=== PATIENT | female | born 1945 | race Caucasian/White ===

== ENCOUNTER → 2017-03-03 | Outpatient (CLI) | payer MEDICARE ==
[~2017-03-03] MED LIST: BISOPROLOL/HCTZ1 TA2 PO; PRAVASTATIN SOD20 MG PO
[2017-03-03 09:39] LABS: BASO % 0.5 % (0.0-1.0); EOS # 0.1 10*3/uL (0.0-0.4); EOS % 1.6 % (1.0-4.0); HEMOGLOBIN 13.4 g/dl (12.0-16.0); LYMPH # 1.6 10*3/uL (1.3-4.4); LYMPH % 25.8 % (27.0-41.0); MEAN CELL VOLUME 91.5 fl (81.0-99.0); MEAN CORPUSCULAR HGB 30.7 pg (27.0-31.0); MEAN CORPUSCULAR HGB CONC 33.5 g/dl (33.0-37.0); MEAN PLATELET VOLUME 8.7 fl (9.6-12.3); MONO # 0.5 10*3/uL (0.1-1.0); MONO % 8.1 % (3.0-9.0); NEUT % 63.8 % (47.0-73.0); PLATELET COUNT AUTOMATED 293 10*3/uL (130-400); RED BLOOD COUNT 4.37 10*6/uL (4.10-5.10); RED CELL DISTRI WIDTH 13.3 % (0-14.5); WHITE BLOOD COUNT 6.3 10*3/uL (4.8-10.8)
[2017-03-03 10:10] LABS: ALBUMIN 3.8 gm/dl (3.1-4.5); ALKALINE PHOSPHATASE 104 U/L (45-117); BILIRUBIN, DIRECT 0.1 mg/dL (0.0-0.2); BUN 15 mg/dl (7-24); CHLORIDE 98 mmol/L (98-107); CHOLESTEROL 203 mg/dL (<200); CREATININE 0.94 mg/dL (0.55-1.02); SGOT/AST 28 IU/L (3-35); SGPT/ALT 32 U/L (12-78); SODIUM 136 mmol/L (136-145); TOTAL PROTEIN 7.6 gm/dL (6.4-8.2); TRIGLYCERIDES 107 mg/dl (<150); VLDL CHOLESTEROL 21 mg/dL (6-40)
[2017-03-03 10:17] LABS: HDL CHOLESTEROL 118 mg/dl (40-60); LDL CHOLESTEROL 64 mg/dL (9-159)
== END | disposition home or self-care (01) ==
LOC: LAB 09:19
PROVIDERS: Internal Medicine
DX: I10 Essential (primary) hypertension (principal); E78.2 Mixed hyperlipidemia; D51.9 Vitamin B12 deficiency anemia, unspecified

== ENCOUNTER → 2017-03-07 | Outpatient (CLI) | payer MEDICARE | END | disposition home or self-care (01) | LOC: LAB 08:09 | DX: E03.9 Hypothyroidism, unspecified (principal) ==

== ENCOUNTER → 2017-10-23 | Outpatient (CLI) | payer MEDICARE ==
[2017-10-23 09:35] LABS: ALBUMIN 3.8 gm/dl (3.1-4.5); ALKALINE PHOSPHATASE 100 U/L (45-117); BUN 16 mg/dl (7-24); CHLORIDE 104 mmol/L (98-107); CHOLESTEROL 177 mg/dL (<200); CREATININE 0.93 mg/dL (0.55-1.02); HDL CHOLESTEROL 99 mg/dl (40-60); LDL CHOLESTEROL 67 mg/dL (9-159); PHOSPHOROUS 3.5 mg/dL (2.5-4.9); POTASSIUM 4.2 mmol/L (3.5-5.1); SGOT/AST 15 IU/L (3-35); SGPT/ALT 16 U/L (12-78); SODIUM 141 mmol/L (136-145); TOTAL PROTEIN 7.3 gm/dL (6.4-8.2); TRIGLYCERIDES 53 mg/dl (<150); VLDL CHOLESTEROL 11 mg/dL (6-40)
[2017-10-23 09:40] LABS: BILIRUBIN, DIRECT 0.1 mg/dL (0.0-0.2)
== END | disposition home or self-care (01) ==
LOC: LAB 08:30
PROVIDERS: Internal Medicine
DX: I10 Essential (primary) hypertension (principal); E78.2 Mixed hyperlipidemia; G62.9 Polyneuropathy, unspecified

== ENCOUNTER → 2017-10-26 | Outpatient (CLI) | payer MEDICARE | END | disposition home or self-care (01) | LOC: MAMMO 08:11 | DX: Z12.31 Encounter for screening mammogram for malignant neoplasm of breast (principal) ==

== ENCOUNTER 2018-11-03 11:57 | Inpatient (IN) | payer MEDICARE ==
[~2018-11-03] VITALS: Ht 162.5 cm; Wt 74.6 kg
[2018-11-03] VITALS (9 sets, daily range): BP systolic 113–172; BP diastolic 51–84
--- NOTE | ~2018-11-03 | O ---
[place], [place] OPERATIVE NOTE NAME: RYDER COTA UNIT #: [id number] ROOM: 410 DOCTOR: RADHIKA PIERRE DO BIRTHDATE: [birth year] DOS: 11/04/2018 PREOPERATIVE DIAGNOSIS: Left femoral neck fracture, displaced. POSTOPERATIVE DIAGNOSIS: Left femoral neck fracture, displaced. OPERATIVE PROCEDURE: Left femoral hemiarthroplasty. SURGEON: Radhika Pierre DO MANAGEMENT PROFESSIONALS: Sherrell Deras Gaydos. ANESTHESIA: Stephany, MINERAL INDUSTRY TEACHER; Spinal. INDICATIONS: The patient is a 73-year-old female with a history of fall in her home yesterday, suffering a left femoral neck fracture with displacement. The risks and benefits of the procedure were explained to the patient preoperatively. Preoperative labs and x-rays were obtained including preoperative medical optimization. DESCRIPTION OF PROCEDURE: The left hip was marked in the holding room. The patient was brought to the operative suite. A spinal anesthetic was performed by Anesthesia. The patient was placed in a lateral decubitus position with the left lower extremity superior and positioned with a Keeling device. All bony prominences were padded. Timeout was performed. Left lower extremity was prepped and draped in the usual orthopedic fashion. The posterior southern incision was marked with a marking pen. The skin was injected with Marcaine 0.5% with epinephrine. The posterior incision was made sharply with a scalpel. Subcutaneous tissue was spread down to the level of the gluteus enrrique. The gluteus enrrique was divided along its fibers after the fascia had been incised. The extremity was externally rotated and the piriformis was identified. This was tagged with a suture. The short external rotators were released from their insertion on the greater trochanter and retracted posteriorly over the sciatic nerve. The capsule was identified and divided. The guide was utilized to michael the calcar cut. This was made sharply with an oscillating saw. The femoral neck was removed and the femoral head. The entry point was lateralized using a box osteotome followed by straight awl and a lateral rasp. The small chili pepper broach was utilized followed by a size 8 and progressing to a size 11 with attention to the anteversion. The trial 1.5 head with a 45 mm outer diameter was utilized and found to be snug and difficult to reduce. The head was changed to a +1.5 head with a 44 mm outer diameter and the reduction was performed. The hip was taken through a range of motion with flexion past 90, internal and external rotation and extension. Shucking was performed and found to be appropriate. The length was measured against the opposite extremity and found to be appropriate. The trials were removed and the area was copiously irrigated with normal saline. The Corail cementless femoral stem was pressfit into place. This was a size 11. [place], [place] OPERATIVE NOTE NAME: RYDER COTA UNIT #: [id number] ROOM: [facility] DOCTOR: RADHIKA PIERRE DO BIRTHDATE: [birth year] The Articul/norah femoral head with a bipolar head were cold welded into place. The fit and fill was evaluated and found to be adequate. The hip was reduced with the femoral head into the acetabulum. The patient was again taken through the range of motion, flexion, extension, internal and external rotation and found to have good motion and stability. The area was copiously irrigated with normal saline and closed in a layered fashion using 0 Vicryl for the capsule followed by 0 Vicryl for the piriformis and short external rotators followed by 0 Vicryl for the gluteus fascia and 2-0 Vicryl for the adipose layer. The closure was completed with skin fernanda. The incision was again injected with Marcaine 0.5% with epinephrine. The dressing was applied with Xeroform, 4 x 4s, ABDs and Tegaderm. The abduction pillow was put into place. The patient was returned to a supine position. The patient was placed on the hospital bed and taken to the recovery room in satisfactory condition. SPONGE AND NEEDLE COUNT: Correct. ESTIMATED BLOOD LOSS: 300 mL. SPECIMENS: Femoral head and portion of the neck. DRAINS: None. PACKING: None. COMPLICATIONS: None. The patient received clindamycin 900 mg IV piggyback preoperatively. Local of Marcaine 0.5% with epinephrine was utilized. IMPLANTS: 1. DePuy Corail hip system, cementless femoral stem FLORES coated 12-14 135 angle standard, no collar size 11. 2. Self-centering bipolar head, 44 mm outer diameter. 3. Articul/norah femoral head 28 mm +1.5 mm tapered. [place], [place] OPERATIVE NOTE NAME: RYDER COTA UNIT #: [id number] ROOM: 410 DOCTOR: RADHIKA PIERRE DO BIRTHDATE: [birth year] RADHIKA PIERRE DO CM:OPRECORD:OPERATIVE NOTE [id number] 22 RADHIKA PIERRE DO 11/04/181920 interface
--- NOTE | ~2018-11-03 | EKG ---
[place], [place] ELECTROCARDIOGRAM REPORT NAME: RYDER COTA UNIT #: [id number] ROOM: 410 DOCTOR: MARYA DRAFT REPORT BIRTHDATE: [birth year] [facility] Test Date: 2018-11-03 Test Time: 13:13:49 Pat Name: RYDER COTA Department: Room: 410 Gender: F Otologist: : 1945 Requested By: JAJA WEN Order Number: [id number] Reading MD: Jojo Cota Measurements Intervals [place] Rate: 78 P: 58 NC: 152 QRS: 55 QRSD: 105 T: 63 QT: 410 QTc: 468 Interpretive Statements Sinus rhythm Electronically Signed On 11-04-2018 9:49:27 PDT by Jojo Cota CM:EKGRPT:ELECTROCARDIOGRAM REPORT [id number] JAJA MALHOTRA DRAFT REPORT JAJA WEN M.D.
[2018-11-03 13:07] LABS: BASO % 0.2 % (0.0-1.0); EOS % 0.2 % (1.0-4.0); LYMPH # 0.9 10*3/uL (1.3-4.4); MEAN CELL VOLUME 91.3 fl (81.0-99.0); MEAN CORPUSCULAR HGB 30.4 pg (27.0-31.0); MEAN CORPUSCULAR HGB CONC 33.3 g/dl (33.0-37.0); MEAN PLATELET VOLUME 9.1 fl (9.6-12.3); MONO # 0.6 10*3/uL (0.1-1.0); MONO % 4.8 % (3.0-9.0); NEUT # 11.2 10*3/uL (2.3-7.9); NEUT % 87.5 % (47.0-73.0); PLATELET COUNT AUTOMATED 226 10*3/uL (130-400); RED BLOOD COUNT 4.27 10*6/uL (4.10-5.10); RED CELL DISTRI WIDTH 13.6 % (0-14.5); WHITE BLOOD COUNT 12.8 10*3/uL (4.8-10.8)
[2018-11-03 13:17] LABS: INTERNATIONAL NORM RATIO 0.9 (2.0-3.5)
[2018-11-03 13:25] LABS: ALBUMIN 3.9 gm/dl (3.1-4.5); ALKALINE PHOSPHATASE 93 U/L (45-117); BUN 14 mg/dl (7-24); CHLORIDE 101 mmol/L (98-107); CREATININE 0.93 mg/dL (0.55-1.02); SGOT/AST 20 IU/L (3-35); SGPT/ALT 17 U/L (12-78); SODIUM 137 mmol/L (136-145); TOTAL PROTEIN 7.3 gm/dL (6.4-8.2)
--- NOTE | 2018-11-03 16:15 | NUR ---
Time: 1614 A 73 year old FEMALE admitted to [facility] under services of ANDRZEJ SWAIN DO. ADMISSION COMPLETED IN ED. Chief complaint: LEFT FX/PAIN. RANDI QUEZADA
--- NOTE | 2018-11-03 16:34 | NUR ---
PT HAS REMAINED AWAKE AND ALERT. LEFT HIP PAIN HAS IMPROVED AT THIS TIME AFTER DEMEROL. PT IS COMFORTABLE. SHE WILL BE ADMITTED HERE,DR JOHNSON HAS BEEN CONSULTED RE;LEFT HIP FX. A DINNER TRAY HAS BEEN ORDERED FOR PT. IS AT BEDSIDE. LAKSHMI ZUNIGA
--- NOTE | 2018-11-03 17:16 | NUR ---
PATIENT MEDICATED WITH IV DILAUDID FOR 10/10 PAIN TO LEFT HIP. WILL MONITOR
[2018-11-03] MEDS ORDERED: VITAMIN B1250 MCG PO (17:36)
[2018-11-03] MEDS ORDERED: ASPIRIN CHEWABL81 MG PO (17:36)
[2018-11-03] MEDS ORDERED: MIRALAX17 GM PO (17:37)
[2018-11-03] MEDS ORDERED: COLACE100 MG PO (17:37)
--- NOTE | 2018-11-03 17:45 | NUR ---
INPT DOCTOR MADE AWARE THAT HOME MEDICATIONS ARE VERIFIED AND UPDATED. STATED OK.
--- NOTE | 2018-11-03 18:20 | NUR ---
16F FOLET CATH INSERTED, POLICY AND PROCEDURE FOLLOWED. 200CC CLEAR/STRAW URINE PRODUCE ONCE INSERTED. 10CC SALINE INSERTED TO [place]. PATIENT TOLERATED WELL.
--- NOTE | 2018-11-03 19:17 | NUR ---
CIRO RECEIVED FROM NICHELLE, PREVIOUS RN AT THIS TIME. PT IS RESTING COMFORTABLY IN BED WITHOUT S/S OF DISTRESS. IS AT BEDSIDE.
--- NOTE | 2018-11-03 20:07 | NUR ---
DR. JOHNSON IS IN SEEING PATIENT AT THIS TIME.
--- NOTE | 2018-11-03 20:59 | NUR ---
PT REPORTS SHE IS COMFORTABLE IN BED. LIGHTS DIMMED AND DOOR CLOSED. PT HAS CALL GUILLERMO WITHIN REACH.
--- NOTE | 2018-11-03 22:27 | NUR ---
PT MEDICATED FOR PAIN REQUESTED PER EMAR. CONT PULSE OX IN PLACE. WILL RE-ASSESS PAIN.
--- NOTE | 2018-11-03 23:47 | NUR ---
PT IS STABLE AND READY FOR TRANSPORTATION TO IN PATIENT ROOM
[2018-11-04] VITALS (13 sets, daily range): BP systolic 105–161; BP diastolic 46–73
--- NOTE | 2018-11-04 00:14 | NUR ---
PT WAS TRANSPORTED TO INPATIENT ROOM #410 IN THE INPATIENT BED.
--- NOTE | 2018-11-04 00:15 | NUR ---
A 73, admitted to , under the services of ANDRZEJ Swain DO with a diagnosis of CLOSED LEFT FEMORAL FRACTURE. Chief complaint is FALL. Patient arrived via bed from ER. Monitor applied. Initial assessment completed. Vital signs taken and recorded. ANDRZEJ SWAIN DO notified of admission to the unit. Orders received. See assessment for past medical history, medications and allergies. Patient and/or family oriented to unit. [facility] visitation policy reviewed. Clothing/patient valuable form completed. ABIMAEL BARNETT
--- NOTE | 2018-11-04 02:28 | NUR ---
PT DENIES NEEDING PAIN MEDICATION AT THIS TIME AND STATES THAT SHE IS COMFORTABLE. WILL CONTINUE TO MONITOR.
--- NOTE | 2018-11-04 03:40 | NUR ---
PT GIVEN DILAUDID AT THIS TIME FOR LEFT HIP PAIN. NO OTHER COMPLAINTS VOICED. PT PLEASANT COOPERATIVE, SPEECH CLEAR. WILL MONITOR FOR EFFECTIVENESS. ALL SAFETY MEASURES IN PLACE. CALL LIGHT IN REACH, PT ENCOURAGED TO USE CALL LIGHT FOR ANY WANTS/NEEDS.
[2018-11-04 07:19] LABS: BASO % 0.1 % (0.0-1.0); EOS % 0.3 % (1.0-4.0); HEMATOCRIT 39.6 % (37.0-47.0); HEMOGLOBIN 13.1 g/dl (12.0-16.0); LYMPH # 1.2 10*3/uL (1.3-4.4); LYMPH % 13.3 % (27.0-41.0); MEAN CELL VOLUME 92.7 fl (81.0-99.0); MEAN CORPUSCULAR HGB 30.7 pg (27.0-31.0); MEAN CORPUSCULAR HGB CONC 33.1 g/dl (33.0-37.0); MEAN PLATELET VOLUME 9.5 fl (9.6-12.3); MONO # 0.7 10*3/uL (0.1-1.0); MONO % 7.7 % (3.0-9.0); NEUT # 7.1 10*3/uL (2.3-7.9); NEUT % 78.4 % (47.0-73.0); PLATELET COUNT AUTOMATED 231 10*3/uL (130-400); RED BLOOD COUNT 4.27 10*6/uL (4.10-5.10); RED CELL DISTRI WIDTH 13.7 % (0-14.5); WHITE BLOOD COUNT 9.1 10*3/uL (4.8-10.8)
--- NOTE | 2018-11-04 07:36 | NUR ---
C/O PAIN TO LEFT HIP OF 12/01. IV DILAUDID GIVEN AT THIS TIME. WILL CONT TO MONITOR. CALL LIGHT IN REACH.
[2018-11-04 07:48] LABS: BUN 12 mg/dl (7-24); CHLORIDE 101 mmol/L (98-107); CHOLESTEROL 188 mg/dL (<200); CREATININE 0.93 mg/dL (0.55-1.02); PHOSPHOROUS 3.9 mg/dL (2.5-4.9); POTASSIUM 3.7 mmol/L (3.5-5.1); SODIUM 137 mmol/L (136-145)
[2018-11-04 07:59] LABS: FREE T4 1.02 ng/dl (0.76-1.46); HDL CHOLESTEROL 117 mg/dl (40-60); LDL CHOLESTEROL 59 mg/dL (9-159); TRIGLYCERIDES 59 mg/dl (<150); VLDL CHOLESTEROL 12 mg/dL (6-40)
--- NOTE | 2018-11-04 08:36 | NUR ---
IV DILAUDID EFF PER PT. WILL CONT TO MONITOR.
--- NOTE | 2018-11-04 12:05 | NUR ---
C/O PAIN TO LEFT LEG OF 8/10. DILAUDID GIVEN AT THIS TIME. WILL CONT TO MONITOR. CALL LIGHT IN REACH.
--- NOTE | 2018-11-04 12:22 | NUR ---
PHYSICAL THERAPY ATTEMPTED PT EVAL TODAY HOWEVER PATIENT WAS AWAITING SURGERY FOR REPAIR OF FX TDOAY WITH DR JOHNSON. WILL AWAIT ORDERS POST OP. THANK YOU FOR REFERRAL SENTHIL W[facility]DR[facility] PT
--- NOTE | 2018-11-04 13:05 | NUR ---
PAIN MED EFF.
--- NOTE | 2018-11-04 13:20 | NUR ---
PT TAKEN TO SURGERY
--- NOTE | 2018-11-04 16:55 | NUR ---
PT REMAINS IN SURGERY.
--- NOTE | 2018-11-04 17:35 | NUR ---
PT ARRIVED ONTO FLOOR. VITALS STABLE. NO COMPLAINTS OF PAIN AT THIS TIME.
--- NOTE | 2018-11-04 19:25 | NUR ---
SPOKE WITH SURGERY. PTS VITALS ARE STABLE. NO COMPLAINTS OF PAIN. WILL BE BRINGING PT UP TO 4E SOON.
--- NOTE | 2018-11-04 20:19 | NUR ---
24 HOUR CHART CHECK COMPLETE.
--- NOTE | 2018-11-04 20:45 | NUR ---
PRN DILUADID ADMINISTERED PRESCRIBED FOR PT C/O DISCOMFORT. WILL CONTINUE TO MONITOR THE PT AND REASSESS. NO OTHER COMPLAINTS AT THIS TIME. CALL LIGHT IN REACH.
--- NOTE | 2018-11-04 21:21 | NUR ---
PT STATES SHE IS "FEELING VERY GOOD" AT THIS TIME. NITA CONTINUE TO MONITOR THE PT.
[2018-11-05] VITALS: BP 122/36
--- NOTE | 2018-11-05 00:15 | NUR ---
PRN DILAUDID ADMINISTERED FOR HIP DISCOMFORT. WILL CONTINUE TO MONITOR THE PT AND REASSESS. NO OTHER COMPLAINTS AT THIS TIME. CALL LIGHT IN REACH.
--- NOTE | 2018-11-05 00:48 | NUR ---
SPOKE TO DR ALMONTE REAGARDING CLARIFICATION FOR AN ORDER OF D5 IN 0.45 NS THAT WAS ORDERED BY DR. JOHNSON. NO RATE WAS GIVEN IN THE ORDER. DR ALMONTE SAID TO RUN IT AT 80 ML/HR AT THIS TIME.
--- NOTE | 2018-11-05 01:10 | NUR ---
PT STATES THAT "THE PAIN IS EASING UP". WILL CONTINUE TO MONITOR. NO COMPLAINTS AT THIS TIME.
--- NOTE | 2018-11-05 03:20 | NUR ---
PRN DILAUDID ADMINISTERED PRESCRIBED FOR 9/10 HIP PAIN. WILL CONTINUE TO MONITOR THE PT AND REASSESS. NO OTHER COMPLAINTS AT THIS TIME. CALL LIGHT IS IN REACH.
--- NOTE | 2018-11-05 03:53 | NUR ---
PT ASLEEP. NO SIGNS OF DISCOMFORT OR DISTRESS NOTED AT THIS TIME. CALL LIGHT IN REACH.
[2018-11-05 04:00] VITALS: BP 121/51
--- NOTE | 2018-11-05 06:22 | NUR ---
PRN DILAUDID ADMINISTERED PRESCRIBED FOR LT HIP PAIN. WILL CONTINUE TO MONITOR THE PT AND REASSESS. NO OTHER COMPLAINTS AT THIS TIME. CALL LIGHT IN REACH.
--- NOTE | 2018-11-05 07:00 | NUR ---
PT RESTING IN BED WITH NO SIGNS OF DISCOMFORT OR DISTRESS NOTED. WILL CONTINUE TO MONITOR.
[2018-11-05 07:35] LABS: BASO % 0.2 % (0.0-1.0); EOS % 0.1 % (1.0-4.0); LYMPH # 0.7 10*3/uL (1.3-4.4); LYMPH % 6.7 % (27.0-41.0); MEAN CORPUSCULAR HGB 31.3 pg (27.0-31.0); MEAN CORPUSCULAR HGB CONC 32.4 g/dl (33.0-37.0); MEAN PLATELET VOLUME 9.8 fl (9.6-12.3); MONO # 0.9 10*3/uL (0.1-1.0); MONO % 8.7 % (3.0-9.0); NEUT # 8.6 10*3/uL (2.3-7.9); PLATELET COUNT AUTOMATED 183 10*3/uL (130-400); RED BLOOD COUNT 3.26 10*6/uL (4.10-5.10); RED CELL DISTRI WIDTH 13.9 % (0-14.5); WHITE BLOOD COUNT 10.2 10*3/uL (4.8-10.8)
[2018-11-05 07:36] LABS: HEMATOCRIT 31.5 % (37.0-47.0); HEMOGLOBIN 10.2 g/dl (12.0-16.0); MEAN CELL VOLUME 96.6 fl (81.0-99.0)
[2018-11-05 07:37] LABS: BUN 12 mg/dl (7-24); CHLORIDE 105 mmol/L (98-107); POTASSIUM 3.8 mmol/L (3.5-5.1); SODIUM 139 mmol/L (136-145)
[2018-11-05 07:38] LABS: CREATININE 0.77 mg/dL (0.55-1.02)
[2018-11-05 08:00] VITALS: BP 136/54
--- NOTE | 2018-11-05 08:35 | NUR ---
RYDER COTA [id number] Please refer to the physician's history and physical for past medical history, comorbid conditions, and allergies. Diagnosis: CLOSED LEFT FEMORAL FRACTURE Kody Score: 14,MODERATE RISK WOUND DESCRIPTIONS: SKIN INTACT TO PATIENT'S LEFT ELBOW. ECCHYMOTIC AREA NOTED. PATIENT STATES SHE FELL AT HOME THIS PAST MONDAY. PATIENT DENIED PAIN AT TIME OF ASSESSMENT. Surface the patient is resting on: Position Pro SKIN PREVENTION RECOMMENDATION: 1. Pressure redistribution support surface as appropriate 2. Elevate heels 3. Remove boots/TEDS every shift and reapply 4. Head of bed 30 degrees as tolerated 5. Assess nutrition and hydration 6. Manage moisture 7. Avoid the use of containment devices while in bed 8. Use absorptive products on surfaces limit layers of linens on bed 9. Turn and reposition every 1-2 hours in bed and every 1 hour in chair as tolerated 10. Weight shifts every 15 minutes while up in chair 11. Offloading with pillows or device to keep heels elevated off bed 12. Monitor skin at least every shift 13. Inspect under medical devices twice a day
--- NOTE | 2018-11-05 09:00 | NUR ---
Garment Manufacturing Supervisor in to talk to patient. Patient states lives at home with . There are few steps in the home. Physician: ash [facility] Patient's level of ADLs: INDEPENDENT Patient has working utilities: all working DME: none Follow-up physician's appointment after d/c: will be made by hospitalist nurse director upon discharge Does patient want to access PORTAL?: no Discharge plan discussed with patient, patient lives at home with , she states she was independent in adls and ambualtion, drove, until her fall, discussed with her a short term alf for rehab prior to going home, patient stated she wanted to see what physical therapy and occupational therapy recommend and will then make her decision, case mangaement/account planner will follow. RYDER HAILE
--- NOTE | 2018-11-05 09:26 | NUR ---
DILAUDID GIVEN FOR C/O LT HIP PAIN. WILL MONITOR.
--- NOTE | 2018-11-05 10:30 | NUR ---
DILAUDID EFFECTIVE PER PT.
--- NOTE | 2018-11-05 11:09 | NUR ---
Occupational therapy eval complete on 4 with full eval to follow. Precautions include fall risk, bed alarm, IV UE, WBAT LLE, left total hip precautions, and loyd. High complexity level 39518 via chart review, testing, and eval. Recommend OT per POC and SNF to allow safe return home at prior level of independence. Thank you for this referral. Primo Ferrara OTR/l
--- NOTE | 2018-11-05 11:59 | NUR ---
PHYSICAL THERAPY PT evaluation complete at this time. Moderate complexity evaluation: 57019. Recommend SNF at discharge for improved safety and strength prior to return home with . Please see PT evaluation for complete details. Thank you. Sandy Cabrera, PT,DPT
[2018-11-05 12:00] VITALS: BP 110/50
--- NOTE | 2018-11-05 12:26 | NUR ---
DILAUDID GIVEN FOR C/O LT HIP PAIN. WILL MONITOR.
--- NOTE | 2018-11-05 13:05 | NUR ---
PHYSICAL THERAPY Patient seen this pm 1:1 for therapy visit and was supine in bed following lunch upon therapist arrival. Patient was very pleasant and reports no c/o's pain since receiving pain med within past hour. Patient educated on safe transfers, including standard hip precautions and voiced 100% understanding as she replied correctly naming all precautions. Patient transfers supine to sit EOB with use of overhead trapeze bar, Mod A, then performed several sit to stand transfers with bed elevated slightly, Mod A x 2, with use of wh walker standing support. Patient needed v/c to improve upright posture and instructed on safe step seqence. Patient completed SPT to bedside chair including 2-3 steps, WBAT on L LE. Patient remained in bedside chair with tray table, call light, and telephone as lunch arrived. Will continue per POC as tolerated to improve safe, functional transfers / mobility. Total treatment time 15 minutes. Sean Escalona, WEDDING FLORIST
--- NOTE | 2018-11-05 13:30 | NUR ---
DILAUDID EFFECTIVE PER PT.
--- NOTE | 2018-11-05 13:30 | NUR ---
OT NOTE Pt was seen this P.M. 1:1 for 30 minute OT session. Upon arrival pt was supine in bed. Pt identified by name and and had no complaints of pain at this time. Pt presented to therapy with continuous 3L-O2 via NC which she remained on throughout entire session. While supine in bed pt was educated on hip precuations and provided a handout for a visual. Pt was able to verbalize hip precautions with 100% understanding. Pt transferred supine to sit EOB with modA and use of overhead trapeze bar. Upon inital rise to the EOB pt had complaints of feeling dizzy, pt was educated on visual fixation and after a few seconds pt stated it was cleared. While sitting EOB pt was educated and demonstrated on use of sock aid for donning B socks. Pt then completed with Jyotsna for first sock due to sequencing and SBA for second sock. Throughout pt had complaints of feeling dizzy and nauseated resulting in pt completing sit to stand transfer from bed level with modA X 2 and use of w/w for UE support. Stand pivot completed from EOB to recliner with Jyotsna and verbal prompts for walker safety. Pt transferred into chair with Jyotsna. There she was left with call light in hand, tray table in place, and phone in reach. Pt's nurse Melina notified of feeling nauseated and dizzy. Continue with rec D/C plan to SNF. MEGAN Figueroa/Coty
--- NOTE | 2018-11-05 14:09 | NUR ---
In to see patient to discuss discharge planning and placement. Patient agreeable to snf placement and provided her choices. 1. [facility] 2. [facility] or 3. [facility]. [facility] are both full so patient asked for a referral to [facility]. Contacted facility and faxed referral. Will require a precert.
[2018-11-05 16:00] VITALS: BP 112/50
--- NOTE | 2018-11-05 16:33 | NUR ---
DILAUDID GIVEN FOR C/O LT HIP PAIN. WILL MONITOR.
--- NOTE | 2018-11-05 19:37 | NUR ---
Shift chart check completed.24 HR chart check completed.
[2018-11-05 20:00] VITALS: BP 106/39
--- NOTE | 2018-11-05 21:04 | NUR ---
PT WAS MEDICATED AT 1999 WITH IV DILAUDID FOR LEFT HIP PAIN "4 OR 5".10. HER DRESSING IS INTACT. WHEN THE AID DID VITAL SIGNS HER PULSE OX WAS 85% ON ROOM AIR. PT DENIED ANY SHORTNESS OF BREATH. ENCOURAGED HER TO USE INCENTIVE SPIROMETRY. HER ABDUCTOR PILLOW IS IN PLACE. HEEL RAISERS ON. JEWELL'S ON. SCD'S APPLIED. IV CONVERTED TO HEP LOCK. WITHIN MINUTES OF NASAL O2 OF 2L/MIN HER PULSE OX ADAM TO UPPER 90'S. SHE IS NOW RESTING EASILY WITH HER EYES CLOSED, APPARENT RELIEF OF PAIN. BED IS IN LOW POSITION. SHE HAS HER CALL LIGHT IN REACH. SEE ALL APPROPRIATE INTERVENTIONS.
[2018-11-06] VITALS: BP 113/49
[2018-11-06 06:53] LABS: BASO % 0.1 % (0.0-1.0); HEMATOCRIT 26.5 % (37.0-47.0); HEMOGLOBIN 8.8 g/dl (12.0-16.0); LYMPH # 0.8 10*3/uL (1.3-4.4); LYMPH % 8.3 % (27.0-41.0); MEAN CORPUSCULAR HGB 30.8 pg (27.0-31.0); MEAN CORPUSCULAR HGB CONC 33.2 g/dl (33.0-37.0); MEAN PLATELET VOLUME 9.8 fl (9.6-12.3); MONO # 1.1 10*3/uL (0.1-1.0); MONO % 10.9 % (3.0-9.0); NEUT # 7.8 10*3/uL (2.3-7.9); NEUT % 80.4 % (47.0-73.0); PLATELET COUNT AUTOMATED 138 10*3/uL (130-400); RED BLOOD COUNT 2.86 10*6/uL (4.10-5.10); RED CELL DISTRI WIDTH 13.7 % (0-14.5); WHITE BLOOD COUNT 9.7 10*3/uL (4.8-10.8)
[2018-11-06 06:54] LABS: MEAN CELL VOLUME 92.7 fl (81.0-99.0)
[2018-11-06 07:06] LABS: BUN 17 mg/dl (7-24); CHLORIDE 98 mmol/L (98-107); CREATININE 0.97 mg/dL (0.55-1.02); POTASSIUM 3.8 mmol/L (3.5-5.1); SODIUM 133 mmol/L (136-145)
[2018-11-06 08:00] VITALS: BP 143/61
--- NOTE | 2018-11-06 09:00 | NUR ---
case management visits with patient, patient has been referred to [facility] with insurance precert initiated, no other needs at this time
--- NOTE | 2018-11-06 09:38 | NUR ---
DILAUDID GIVEN FOR C/O LT HIP PAIN. RATES 7/10 ON PAIN SCALE. WILL MONITOR.
--- NOTE | 2018-11-06 09:40 | NUR ---
OT NOTE Pt was seen this A.M. 1:1 for 24 minute OT session. Upon arrival pt was supine in bed. Pt identified by name and and had no complaints of pain at rest. Throughout activity pt reported that her pain elevated to a 7/10. Pt transferred supine to sit EOB with maxA X 2 and use of overhead trapeze bar. Upon inital rise pt had reports of becoming dizzy. Re educated pt on visual fixation technique and pt had good carry over with reports of dizziness being cleared after aprox 12 seconds. Pt then completed sit to stand transfer from bed level with modA X 1 and use of w/w for UE support. Pt completed functional mobility to the bedside commode with Jyotsna and use of w/w. Pt presented with good carry over of hip precautions and walker safety. Pt transferred on/off bedside commode with modA x 1. Functional mobility then completed back to the recliner with Jyotsna X 1 and use of w/w. Pt was left sitting upright in the recliner with call light in hand, tray table in place, and under nurse supervision. Continue with rec D/C plan to SNF. MEGAN Figueroa/Coty
--- NOTE | 2018-11-06 10:44 | NUR ---
DILAUDID EFFECTIVE PER PT.
--- NOTE | 2018-11-06 10:52 | NUR ---
PHYSICAL THERAPY Patient gives informed consent for treatment. Patient had report of L HIP PAIN of 6/10. Patient was supine in bed with head of bed elevated and bed alarm activated. Patient transferred supine to sitting at EOB with MAX A X 2. Patient required MAX A X 2 with MAX VERBAL CUES for moving L LE out to EOB AND USING OVERAHEAD TRAPEZE. Patient is on 3 liters of spO2 via nasal canula. Patient performed sit to stand from EOB with MOD A X 1. Patient ambulated 20' x 1 with Standard Walker and CGA X 1 with rolling chair to hallway. Patient required VERBAL CUES for upright posture, pushing down on walker with hands, and advancing LEs. Patient is on 3 liters of spO2 via nasal canula. Patient transferred to bedside chair with MIN A x 2 WITH VERBAL CUES FOR PUTTING HANDS BACK ON ARMRESTS OF CHAIR. Patient Stand pivot transfer with verbal cues for only pivoting on R LE and pushing down on Standard Walker with bilateral Hands. Patient was left in sitting position with call light within reach and EFRAIN LOGAN said that she did NOT need a chair alarm. EFRAIN MENDEZ said she did not need the abduction pillow while sitting. Patient was 1:1 with this MEDICAL DIRECTOR/HEAD TEAM PHYSICIAN for 23 minutes total. MORALES PURI MEDICAL DIRECTOR/HEAD TEAM PHYSICIAN
[2018-11-06 12:00] VITALS: BP 107/47
--- NOTE | 2018-11-06 13:48 | NUR ---
[facility] has accepted this patient and has received auth. Patient is ok to go today if medically stable for discharge.
--- NOTE | 2018-11-06 14:45 | NUR ---
OT NOTE Pt was seen this P.M. for second OT session consisting of 27 minutes. Upon arrival pt was supine in bed. Pt identified by name and and had complaints of 5/10 L hip pain. Pt transferred supine to sit EOB with modA X2 and use of overhead trapeze bar. Sit to stand completed from bed level with Jyotsna and use of w/w for UE support. Functional mobility completed to the bedside commode with CGA and use of w/w with good carry over of hip precautions and walker safety. Pt transferred on to bedside commode with Jyotsna and verbal prompts to slide her LLE out when sitting. Clothing management completed with modA due to becoming unsteady when standing without UE support. Toilet hygiene completed with SBA while seated. Sit to stand completed from bedside commode with Jyotsna and use of w/w for UE support. Functional mobility completed back to the recliner where she sat for seated rest break due to fatigue and pain. While seated pt was educated on corn cutter and long handled sponge for increased I in lower body ADL's. Pt doffed and donned B socks using corn cutter and sock aid with SBA. Pt then simulated LB bathing with use of long handled sponge and SBA. Pt then transferred back into bed sit to supine with modA for assist with LLE. There she was left with call light in hand, trya table in place, and bed alarm on for safety. Continue with rec D/C plan to SNF. MEGAN Figueroa/Coty
--- NOTE | 2018-11-06 14:46 | NUR ---
PHYSICAL THERAPY Pt seen with bar. pt in bed sit-supine modax2. Pt sit-std minax2 with education for hand placement. pt ambulated 20 feet x 2 minax1. Pt on/off bedside commode minax1 . pt educated in sliding sore leg out. pt in out chair at bedside modax1-2. pt educated on sitting down easily. Pt was seen for 24 minutes. Silke [id number]
[2018-11-06] MEDS ORDERED: ENOXAPARIN40 MG/0.2 SC (15:55)
[2018-11-06] MEDS ORDERED: Percocet 325 MG1 TAB PO (15:55)
[2018-11-06] MEDS ORDERED: VITAMIN D5000 UNI1 PO (15:55)
[2018-11-06] MEDS ORDERED: ASPIR-TRIN325 MG PO (15:55)
[2018-11-06 16:00] VITALS: BP 107/57
--- NOTE | 2018-11-06 18:26 | NUR ---
PERCOCET GIVEN FOR C/O LT HIP PAIN. WILL MONITOR.
--- NOTE | 2018-11-06 18:38 | NUR ---
MSDIS Discharge instructions reviewed with patient/family. Patient receptive and verbalizes understanding. Follow-up care arranged. Written instructions given to patient/family. ANDREA LOGAN
--- NOTE | 2018-11-07 07:49 | NUR ---
PHYSICAL THERAPY CO-SIGN I approve of the Physical Therapy notes written above. RYAN NGO
--- NOTE | 2018-11-07 08:15 | NUR ---
OCCUPATIONAL THERAPY CO-SIGN I approve of the Occupational Therapy notes written above. RADHA ZAIDI OTR/Coty
== END 2018-11-06 18:38 | disposition other institution (70) | DRG 470 ==
LOC: ED 11:57 → 4E 15:47 → EDHOLD 15:47 → 4E 22:44
PROVIDERS: Emergency Medicine; Internal Medicine; Student in an Organized Health Care Education/Training Program; ADMIT Internal Medicine
PROC: 0SRS01A Replacement of Left Hip Joint, Femoral Surface with Metal Synthetic Substitute, Uncemented, Open Approach (ICD-10-PCS; principal; 2018-11-04)
DX: S72.002A Fracture of unspecified part of neck of left femur, initial encounter for closed fracture (principal); D72.829 Elevated white blood cell count, unspecified; D72.810 Lymphocytopenia; R73.9 Hyperglycemia, unspecified; I10 Essential (primary) hypertension; E78.5 Hyperlipidemia, unspecified; W01.0XXA Fall on same level from slipping, tripping and stumbling without subsequent striking against object, initial encounter; Y93.89 Activity, other specified; Y92.098 Other place in other non-institutional residence as the place of occurrence of the external cause; Y99.8 Other external cause status; Z88.0 Allergy status to penicillin; Z82.49 Family history of ischemic heart disease and other diseases of the circulatory system; Z83.79 Family history of other diseases of the digestive system; Z82.3 Family history of stroke; Z83.1 Family history of other infectious and parasitic diseases; Z79.82 Long term (current) use of aspirin; Z79.899 Other long term (current) drug therapy

== ENCOUNTER → 2018-11-20 | Outpatient (CLI) | payer MEDICARE ==
[~2018-11-20] MED LIST changes: +ASPIR-TRIN325 MG PO; +ASPIRIN CHEWABL81 MG PO; +COLACE100 MG PO; +ENOXAPARIN40 MG/0.2 SC; +MIRALAX17 GM PO; +Percocet 325 MG1 TAB PO; +VITAMIN B1250 MCG PO; +VITAMIN D5000 UNI1 PO
== END | disposition home or self-care (01) ==
LOC: ORTHO 01:16
DX: S72.002A Fracture of unspecified part of neck of left femur, initial encounter for closed fracture (principal); X58.XXXA Exposure to other specified factors, initial encounter; Y93.89 Activity, other specified; Y92.89 Other specified places as the place of occurrence of the external cause; Y99.8 Other external cause status

== ENCOUNTER → 2018-12-19 | Outpatient (CLI) | payer MEDICARE | END | disposition home or self-care (01) | LOC: ORTHO 00:35 | DX: S72.002D Fracture of unspecified part of neck of left femur, subsequent encounter for closed fracture with routine healing (principal); Z96.642 Presence of left artificial hip joint; X58.XXXD Exposure to other specified factors, subsequent encounter ==

== ENCOUNTER → 2019-01-16 | Outpatient (CLI) | payer MEDICARE ==
[~2019-01-16] MED LIST changes: +Motrin,Rufen800 MG PO
== END | disposition home or self-care (01) ==
LOC: LAB 13:14
DX: N95.0 Postmenopausal bleeding (principal)

== ENCOUNTER → 2019-01-22 | Day surgery (SDC) | payer MEDICARE ==
[2019-01-16 13:49] VITALS: BP 153/56
[~2019-01-22] VITALS: Ht 162.5 cm; Wt 65.8 kg
[2019-01-22 07:59] VITALS: BP 154/86
[2019-01-22 09:33] VITALS: BP 153/64
[2019-01-22 09:44] VITALS: BP 163/71
[2019-01-22 09:59] VITALS: BP 152/92
== END | disposition home or self-care (01) ==
LOC: SDC 01-16 13:15
DX: N95.0 Postmenopausal bleeding (principal); I10 Essential (primary) hypertension; E78.00 Pure hypercholesterolemia, unspecified; N88.2 Stricture and stenosis of cervix uteri; Z98.890 Other specified postprocedural states; Z88.0 Allergy status to penicillin; Z79.899 Other long term (current) drug therapy

== ENCOUNTER → 2019-02-04 | Outpatient (CLI) | payer MEDICARE | END | disposition home or self-care (01) | LOC: ORTHO 00:49 | DX: S72.002D Fracture of unspecified part of neck of left femur, subsequent encounter for closed fracture with routine healing (principal); X58.XXXD Exposure to other specified factors, subsequent encounter ==

== ENCOUNTER → 2019-05-07 | Outpatient (CLI) | payer MEDICARE | END | disposition home or self-care (01) | LOC: ORTHO 12:46 | DX: M25.552 Pain in left hip (principal); Z96.642 Presence of left artificial hip joint ==

== ENCOUNTER → 2019-05-31 | Outpatient (CLI) | payer MEDICARE | END | disposition home or self-care (01) | LOC: CT 16:04 | DX: K43.9 Ventral hernia without obstruction or gangrene (principal) ==

== ENCOUNTER → 2020-07-09 | Outpatient (CLI) | payer MEDICARE | END | disposition home or self-care (01) | LOC: MAMMO 01:58 | PROVIDERS: ATTEND Nurse Practitioner Women's Health | DX: N63.23 Unspecified lump in the left breast, lower outer quadrant (principal) ==

== ENCOUNTER → 2020-12-23 | Outpatient (CLI) | payer MEDICARE ==
[2020-12-23 14:45] LABS: BASO % 0.4 % (0.0-1.0); EOS # 0.1 10*3/uL (0.0-0.4); EOS % 1.1 % (1.0-4.0); HEMATOCRIT 39.1 % (37.0-47.0); LYMPH # 1.4 10*3/uL (1.3-4.4); LYMPH % 24.6 % (27.0-41.0); MEAN CELL VOLUME 93.3 fl (81.0-99.0); MEAN CORPUSCULAR HGB 30.3 pg (27.0-31.0); MEAN CORPUSCULAR HGB CONC 32.5 g/dl (33.0-37.0); MONO # 0.4 10*3/uL (0.1-1.0); MONO % 7.8 % (3.0-9.0); NEUT # 3.6 10*3/uL (2.3-7.9); NEUT % 65.9 % (47.0-73.0); PLATELET COUNT AUTOMATED 242 10*3/uL (130-400); RED BLOOD COUNT 4.19 10*6/uL (4.10-5.10); RED CELL DISTRI WIDTH 14.3 % (0-14.5); WHITE BLOOD COUNT 5.5 10*3/uL (4.8-10.8)
[2020-12-23 15:18] LABS: IRON 66 ug/dL (50-170)
[2020-12-23 15:19] LABS: TOTAL IRON BINDING CAPACITY 340 ug/dl (250-450)
== END | disposition home or self-care (01) ==
LOC: LAB 14:17
PROVIDERS: ATTEND Registered Nurse
DX: Z01.812 Encounter for preprocedural laboratory examination (principal); D64.9 Anemia, unspecified; M48.062 Spinal stenosis, lumbar region with neurogenic claudication; M43.10 Spondylolisthesis, site unspecified

== ENCOUNTER → 2022-09-06 | Outpatient (CLI) | payer MEDICARE | END | disposition home or self-care (01) | LOC: MAMMO 09-05 08:14 | PROVIDERS: ATTEND Nurse Practitioner Women's Health | DX: N63.20 Unspecified lump in the left breast, unspecified quadrant (principal); N64.9 Disorder of breast, unspecified ==